=== PATIENT | female | born 2005 | race Caucasian/White ===

== ENCOUNTER 2024-04-04 04:07 | Emergency (ER) | payer MEDICAID ==
[2024-04-04] MEDS: EPINEPHrine 1 MG/ML SDV IM ONE (04:14)
[2024-04-04] MEDS: predniSONE 20 MG Tab PO ONE (04:16)
[2024-04-04] MEDS: diphenhydrAMINE 25 MG/10 ML Cup PO ONE (04:17)
[2024-04-04 04:47] LABS: BASOPHILS ABSOLUTE AUTO 0.05 K/uL (0.00-0.10); BASOPHILS PERCENT AUTO 0.4 % (0.1-1.3); EOSINOPHILS ABSOLUTE AUTO 0.25 K/uL (0.00-0.40); HEMATOCRIT 41.2 % (34.3-46.0); HEMOGLOBIN 14.5 g/dL (11.2-15.5); IMMATURE GRAN ABSOLUTE AUTO 0.03 K/uL (0.00-0.23); IMMATURE GRAN PERCENT AUTO 0.2 % (0.0-0.7); LYMPHOCYTES ABSOLUTE AUTO 3.85 K/uL (0.8-3.3); LYMPHOCYTES PERCENT AUTO 30.9 % (11.4-47.7); MEAN CORPUSCULAR HEMOGLOBIN 30.3 pg (31.6-35.5); MEAN CORPUSCULAR HGB CONC 35.2 g/dL (31.6-35.5); MEAN CORPUSCULAR VOLUME 86.2 fL (81.4-99.0); MONOCYTES ABSOLUTE AUTO 0.73 K/uL (0.20-0.90); MONOCYTES PERCENT AUTO 5.9 % (3.3-12.6); NEUTROPHILS ABSOLUTE AUTO 7.53 K/uL (1.0-7.6); NEUTROPHILS PERCENT AUTO 60.6 % (40.0-78.1); PLATELET COUNT,PLT 233 K/uL (130-375); RED BLOOD CELL COUNT 4.78 M/uL (3.77-5.24); WHITE BLOOD CELL COUNT,WBC 12.4 K/uL (3.2-11.0)
[2024-04-04 05:06] LABS: CALCIUM 9.1 mg/dL (8.5-10.1); CREATININE 0.9 mg/dL (0.6-1.0); EST CRCL DRUG DOSING (CG) 85.38 mL/min; POTASSIUM,K 3.1 mmol/L (3.6-5.2)
[2024-04-04 05:07] LABS: ANION GAP 17.1 mmol/L (5.0-14.0)
== END 2024-04-04 07:24 | disposition home or self-care (01) ==
LOC: JP.ED 04:07
DX: T78.40XA Allergy, unspecified, initial encounter (principal); Z79.899 Other long term (current) drug therapy
CPT/HCPCS: 36415; 80048; 85025; 96372; 99283; A9270; J0171; J7512

== ENCOUNTER 2024-04-28 19:55 | Emergency (ER) | payer MEDICAID ==
[2024-04-28] MEDS: methylPREDNISolone Sodium Succinate 125 MG/2 ML SDV IVPUSH ONE (20:30)
[2024-04-28] MEDS: methylPREDNISolone Sodium Succinate 125 MG/2 ML SDV ONE (20:31)
== END 2024-04-28 22:43 | disposition home or self-care (01) ==
LOC: JP.ED 19:55
DX: T78.40XA Allergy, unspecified, initial encounter (principal)
CPT/HCPCS: 96374; 99283; J2919